=== PATIENT | female | born 1955 | race Caucasian/White ===

== ENCOUNTER 2020-11-30 10:15 | Outpatient (RCR) | payer MEDICARE, SELFPAY ==
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
--- NOTE | 2020-09-29 18:06 | HO.TMSDAILY2 ---
TMS Daily Progress Note Daily TMS Progress Note Week #: 1 Treatment #(12-31): 1 PHQ-9 Pre-Treatment (12-28): Pending PHQ-9 Most Recent (12-28): Pending CGI-I Most Recent: 4 = No Change Reviewed: TMS Tech Note Reviewed Verification: I have reviewed the TMS Veterinary Medicine Doctor Note and agree with the contents. The patient remains a candidate to continue TMS treatment per protocol.
--- NOTE | 2020-09-30 09:58 | HO.TMSDAILY2 ---
TMS Daily Progress Note Daily TMS Progress Note Week #: 1 Treatment #(12-31): 1 PHQ-9 Pre-Treatment (12-28): Pending actual score Predicted 16 PHQ-9 Most Recent (12-28): Pending CGI-I Most Recent: 4 = No Change Reviewed: TMS Tech Note Reviewed Verification: I have reviewed the TMS Work Station Support Specialist Note and agree with the contents. The patient remains a candidate to continue TMS treatment per protocol.
--- NOTE | 2020-09-30 18:46 | P.PNPS_ITS ---
TMS Daily Progress Note Daily TMS Progress Note Week #: 2 Treatment #(12-31): 1 PHQ-9 Pre-Treatment (12-28): 18 PHQ-9 Most Recent (12-28): 18 JAROD-7 Pre-Treatment (0-21): 13 JAROD-7 Most Recent (0-21): 13 CGI-I Most Recent: 4 = No Change Reviewed: TMS Tech Note Reviewed Verification: I have reviewed the TMS Dials Inspector Note and agree with the contents. The patient remains a candidate to continue TMS treatment per protocol.
--- NOTE | 2020-10-03 19:06 | P.PNPS_ITS ---
TMS Daily Progress Note Daily TMS Progress Note Week #: 3 Treatment #(12-31): 1 PHQ-9 Pre-Treatment (12-28): 18 PHQ-9 Most Recent (12-28): 18 JAROD-7 Pre-Treatment (0-21): 13 JAROD-7 Most Recent (0-21): 13 CGI-I Most Recent: 4 = No Change Reviewed: TMS Tech Note Reviewed Verification: I have reviewed the TMS Solar Sales Consultant Note and agree with the contents. The patient remains a candidate to continue TMS treatment per protocol.
--- NOTE | 2020-10-04 16:41 | P.PNPS_ITS ---
TMS Daily Progress Note Daily TMS Progress Note Week #: 1 Treatment #(12-31): 4 PHQ-9 Pre-Treatment (12-28): 18 PHQ-9 Most Recent (12-28): 18 JAROD-7 Pre-Treatment (0-21): 13 JAROD-7 Most Recent (0-21): 13 CGI-I Most Recent: 4 = No Change Reviewed: TMS Tech Note Reviewed Verification: I have reviewed the TMS Senior It Project Manager Note and agree with the contents. The patient remains a candidate to continue TMS treatment per protocol.
--- NOTE | 2020-10-05 09:26 | P.PNPS_ITS ---
TMS Daily Progress Note Daily TMS Progress Note Week #: 1 Treatment #(12-31): 5 PHQ-9 Pre-Treatment (12-28): 18 PHQ-9 Most Recent (12-28): 18 JAROD-7 Pre-Treatment (0-21): 13 JAROD-7 Most Recent (0-21): 13 CGI-I Most Recent: 4 = No Change Q-LES-Q-SF Most Recent: 36 Reviewed: TMS Tech Note Reviewed Verification: I have reviewed the TMS Cutting Machine Operator Note and agree with the contents. The patient remains a candidate to continue TMS treatment per protocol.
--- NOTE | 2020-10-06 15:33 | P.PNPS_ITS ---
TMS Daily Progress Note Daily TMS Progress Note Week #: 2 Treatment #(12-31): 6 PHQ-9 Pre-Treatment (12-28): 18 PHQ-9 Most Recent (12-28): 18 JAROD-7 Pre-Treatment (0-21): 13 JAROD-7 Most Recent (0-21): 13 CGI-I Most Recent: 4 = No Change Q-LES-Q-SF Most Recent: 36 Reviewed: TMS Tech Note Reviewed Verification: I have reviewed the TMS Furniture Finisher Apprentice Note and agree with the contents. The patient remains a candidate to continue TMS treatment per protocol.
--- NOTE | 2020-10-07 14:32 | P.PNPS_ITS ---
TMS Daily Progress Note Daily TMS Progress Note Treatment #(-30): 6 PHQ-9 Pre-Treatment (-): 18 PHQ-9 Most Recent (12-28): 18 JAROD-7 Pre-Treatment (0-21): 13 JAROD-7 Most Recent (0-21): 13 CGI-I Most Recent: 4 = No Change Q-LES-Q-SF Most Recent: 36 Verification: I have reviewed the TMS Appeals Analyst Note and agree with the contents. The patient remains a candidate to continue TMS treatment per protocol.
--- NOTE | 2020-10-07 14:32 | P.PNPS_ITS ---
TMS Daily Progress Note Daily TMS Progress Note Week #: 2 Treatment #(12-31): 7 PHQ-9 Pre-Treatment (12-28): 18 PHQ-9 Most Recent (12-28): 18 JAROD-7 Pre-Treatment (0-21): 13 JAROD-7 Most Recent (0-21): 13 CGI-I Most Recent: 4 = No Change Q-LES-Q-SF Most Recent: 36 Reviewed: TMS Tech Note Reviewed Verification: I have reviewed the TMS Head Sulfide Operator Note and agree with the contents. The patient remains a candidate to continue TMS treatment per protocol.
--- NOTE | 2020-10-10 14:18 | HO.TMSDAILY2 ---
TMS Daily Progress Note Daily TMS Progress Note Week #: 2 Treatment #(12-31): 8 PHQ-9 Pre-Treatment (12-28): 18 PHQ-9 Most Recent (12-28): 20 JAROD-7 Pre-Treatment (0-21): 13 JAROD-7 Most Recent (0-21): 12 CGI-I Most Recent: 5 = Minimally Worse Q-LES-Q-SF Most Recent: 36 Reviewed: TMS Tech Note Reviewed Verification: I have reviewed the TMS Bilingual Executive Assistant Note and agree with the contents. The patient remains a candidate to continue TMS treatment per protocol.
--- NOTE | 2020-10-11 21:56 | HO.TMSDAILY2 ---
TMS Daily Progress Note Daily TMS Progress Note Week #: 2 Treatment #(12-31): 9 PHQ-9 Pre-Treatment (12-28): 18 PHQ-9 Most Recent (12-28): 20 JAROD-7 Pre-Treatment (0-21): 13 JAROD-7 Most Recent (0-21): 12 CGI-I Most Recent: 5 = Minimally Worse Q-LES-Q-SF Most Recent: 36 Reviewed: TMS Tech Note Reviewed Verification: I have reviewed the TMS Insights Manager Note and agree with the contents. The patient remains a candidate to continue TMS treatment per protocol.
--- NOTE | 2020-10-12 19:24 | P.PNPS_ITS ---
TMS Daily Progress Note Daily TMS Progress Note Week #: 2 Treatment #(12-31): 10 PHQ-9 Pre-Treatment (12-28): 18 PHQ-9 Most Recent (12-28): 20 JAROD-7 Pre-Treatment (0-21): 13 JAROD-7 Most Recent (0-21): 12 CGI-I Most Recent: 5 = Minimally Worse Q-LES-Q-SF Most Recent: 36 Reviewed: TMS Tech Note Reviewed Verification: I have reviewed the TMS Asset Protection Assistant Note and agree with the contents. The patient remains a candidate to continue TMS treatment per protocol.
--- NOTE | 2020-10-13 12:16 | HO.TMSDAILY2 ---
TMS Daily Progress Note Daily TMS Progress Note Week #: 3 Treatment #(12-31): 11 PHQ-9 Pre-Treatment (12-28): 18 PHQ-9 Most Recent (12-28): 20 JAROD-7 Pre-Treatment (0-21): 13 JAROD-7 Most Recent (0-21): 12 CGI-I Most Recent: 5 = Minimally Worse Q-LES-Q-SF Most Recent: 36 Reviewed: TMS Tech Note Reviewed Verification: I have reviewed the TMS Director Student Union Note and agree with the contents. The patient remains a candidate to continue TMS treatment per protocol.
--- NOTE | 2020-10-14 23:03 | P.PNPS_ITS ---
TMS Daily Progress Note Daily TMS Progress Note Week #: 3 Treatment #(12-31): 12 PHQ-9 Pre-Treatment (12-28): 18 PHQ-9 Most Recent (12-28): 20 JAROD-7 Pre-Treatment (0-21): 13 JAROD-7 Most Recent (0-21): 12 CGI-I Most Recent: 5 = Minimally Worse Q-LES-Q-SF Most Recent: 36 Reviewed: TMS Tech Note Reviewed Verification: I have reviewed the TMS Regional Facilities Manager Note and agree with the contents. The patient remains a candidate to continue TMS treatment per protocol.
--- NOTE | 2020-10-17 19:27 | P.PNPS_ITS ---
TMS Daily Progress Note Daily TMS Progress Note Week #: 3 Treatment #(12-31): 13 PHQ-9 Pre-Treatment (12-28): 18 PHQ-9 Most Recent (12-28): 15 JAROD-7 Pre-Treatment (0-21): 13 JAROD-7 Most Recent (0-21): 11 CGI-I Most Recent: 3 = Minimally Improved Q-LES-Q-SF Most Recent: 36 Reviewed: TMS Tech Note Reviewed Verification: I have reviewed the TMS Clerk Manager Note and agree with the contents. The patient remains a candidate to continue TMS treatment per protocol.
--- NOTE | 2020-10-18 23:59 | HO.TMSDAILY2 ---
TMS Daily Progress Note Daily TMS Progress Note Week #: 3 Treatment #(12-31): 14 PHQ-9 Pre-Treatment (12-28): 18 PHQ-9 Most Recent (12-28): 15 JAROD-7 Pre-Treatment (0-21): 13 JAROD-7 Most Recent (0-21): 11 CGI-I Most Recent: 3 = Minimally Improved Q-LES-Q-SF Most Recent: 36 Reviewed: TMS Tech Note Reviewed Verification: I have reviewed the TMS Gravity Prospecting Observer Helper Note and agree with the contents. The patient remains a candidate to continue TMS treatment per protocol.
--- NOTE | 2020-10-19 18:16 | P.PNPS_ITS ---
TMS Daily Progress Note Daily TMS Progress Note Week #: 3 Treatment #(12-31): 15 PHQ-9 Pre-Treatment (12-28): 18 PHQ-9 Most Recent (12-28): 15 JAROD-7 Pre-Treatment (0-21): 13 JAROD-7 Most Recent (0-21): 11 CGI-I Most Recent: 3 = Minimally Improved Q-LES-Q-SF Most Recent: 36 Reviewed: TMS Tech Note Reviewed (Uncomplicated re-mapping. Settings slightly different but not substantially so. Reminded Cami that she is early in treatment, and is likely to have a good response as she has had in the past) Verification: I have reviewed the TMS Railroad Car Repair Supervisor Note and agree with the contents. The patient remains a candidate to continue TMS treatment per protocol.
--- NOTE | 2020-10-20 04:20 | HO.TMSDAILY2 ---
TMS Daily Progress Note Daily TMS Progress Note Week #: 4 Treatment #(12-31): 16 PHQ-9 Pre-Treatment (12-28): 18 PHQ-9 Most Recent (12-28): 15 JAROD-7 Pre-Treatment (0-21): 13 JAROD-7 Most Recent (0-21): 11 CGI-I Most Recent: 3 = Minimally Improved Q-LES-Q-SF Most Recent: 36 Reviewed: TMS Tech Note Reviewed Verification: I have reviewed the TMS Manager Medical Affairs Note and agree with the contents. The patient remains a candidate to continue TMS treatment per protocol.
--- NOTE | 2020-10-21 13:57 | P.PNPS_ITS ---
TMS Daily Progress Note Daily TMS Progress Note Week #: 4 Treatment #(12-31): 17 PHQ-9 Pre-Treatment (12-28): 18 PHQ-9 Most Recent (12-28): 15 JAROD-7 Pre-Treatment (0-21): 13 JAROD-7 Most Recent (0-21): 16 CGI-I Most Recent: 4 = No Change Q-LES-Q-SF Most Recent: 36 Reviewed: TMS Tech Note Reviewed (TMS tech will confirm with patient at next appointment that maximum dose of tylenol at one dose should be 1000mg) Verification: I have reviewed the TMS Interior Horticulturist Note and agree with the contents. The patient remains a candidate to continue TMS treatment per protocol.
--- NOTE | 2020-10-24 15:46 | HO.TMSDAILY2 ---
TMS Daily Progress Note Daily TMS Progress Note Week #: 4 Treatment #(12-31): 18 PHQ-9 Pre-Treatment (12-28): 18 PHQ-9 Most Recent (12-28): 15 JAROD-7 Pre-Treatment (0-21): 13 JAROD-7 Most Recent (0-21): 10 CGI-I Most Recent: 4 = No Change Q-LES-Q-SF Most Recent: 55 Reviewed: TMS Tech Note Reviewed Verification: I have reviewed the TMS Brick Chimney Supervisor Note and agree with the contents. The patient remains a candidate to continue TMS treatment per protocol.
--- NOTE | 2020-10-25 23:13 | HO.TMSDAILY2 ---
TMS Daily Progress Note Daily TMS Progress Note Date of Service: 10/25/20 Week #: 4 Treatment #(-): 19 PHQ-9 Pre-Treatment (1-): 18 PHQ-9 Most Recent (12-28): 15 JAROD-7 Pre-Treatment (0-21): 13 JAROD-7 Most Recent (0-21): 10 CGI-I Most Recent: 4 = No Change Q-LES-Q-SF Most Recent: 55 Reviewed: TMS Tech Note Reviewed Verification: I have reviewed the TMS Pinner Printed Circuit Boards Note and agree with the contents. The patient remains a candidate to continue TMS treatment per protocol.
--- NOTE | 2020-10-26 05:44 | HO.TMSDAILY2 ---
TMS Daily Progress Note Daily TMS Progress Note Date of Service: 10/27/20 Week #: 4 Treatment #(-): 20 PHQ-9 Pre-Treatment (-): 18 PHQ-9 Most Recent (12-28): 15 JAROD-7 Pre-Treatment (0-21): 13 JAROD-7 Most Recent (0-21): 10 CGI-I Most Recent: 4 = No Change Q-LES-Q-SF Most Recent: 55 Reviewed: TMS Tech Note Reviewed Verification: I have reviewed the TMS Veterinary Surgery Technologist Note and agree with the contents. The patient remains a candidate to continue TMS treatment per protocol.
--- NOTE | 2020-10-31 17:26 | HO.TMSDAILY2 ---
TMS Daily Progress Note Daily TMS Progress Note Date of Service: 10/31/20 Week #: 5 Treatment #(-): 21 PHQ-9 Pre-Treatment (-): 18 PHQ-9 Most Recent (12-28): 14 JAROD-7 Pre-Treatment (0-21): 13 JAROD-7 Most Recent (0-21): 12 CGI-I Most Recent: 4 = No Change Q-LES-Q-SF Most Recent: 55 Reviewed: TMS Tech Note Reviewed Verification: I have reviewed the TMS Programming Coordinator Note and agree with the contents. The patient remains a candidate to continue TMS treatment per protocol.
--- NOTE | 2020-11-01 23:19 | P.PNPS_ITS ---
TMS Daily Progress Note Daily TMS Progress Note Date of Service: 11/01/20 Week #: 5 Treatment #(-): 22 PHQ-9 Pre-Treatment (-): 18 PHQ-9 Most Recent (12-28): 14 JAROD-7 Pre-Treatment (0-21): 13 JAROD-7 Most Recent (0-21): 12 CGI-I Most Recent: 4 = No Change Q-LES-Q-SF Most Recent: 55 Reviewed: TMS Tech Note Reviewed Verification: I have reviewed the TMS Oracle Software Engineer Note and agree with the contents. The patient remains a candidate to continue TMS treatment per protocol.
--- NOTE | 2020-11-02 08:11 | P.PNPS_ITS ---
TMS Daily Progress Note Daily TMS Progress Note Date of Service: 11/02/20 Week #: 5 Treatment #(-30): 23 PHQ-9 Pre-Treatment (1-): 18 PHQ-9 Most Recent (12-28): 14 JAROD-7 Pre-Treatment (0-21): 13 JAROD-7 Most Recent (0-21): 12 CGI-I Most Recent: 3 = Minimally Improved Q-LES-Q-SF Most Recent: 55 Reviewed: TMS Tech Note Reviewed Verification: I have reviewed the TMS Tobacco Acreage Measurer Note and agree with the eugenio nts. The patient remains a candidate to continue TMS treatment per protocol.
--- NOTE | 2020-11-03 16:48 | P.PNPS_ITS ---
TMS Daily Progress Note Daily TMS Progress Note Date of Service: 11/03/20 Week #: 5 Treatment #(-30): 24 PHQ-9 Pre-Treatment (1-): 18 PHQ-9 Most Recent (12-28): 14 JAROD-7 Pre-Treatment (0-21): 13 JAROD-7 Most Recent (0-21): 12 CGI-I Most Recent: 3 = Minimally Improved Q-LES-Q-SF Most Recent: 55 Reviewed: TMS Tech Note Reviewed Verification: I have reviewed the TMS Moving Van Driver Note and agree with the eugenio nts. The patient remains a candidate to continue TMS treatment per protocol.
--- NOTE | 2020-11-04 12:54 | HO.TMSDAILY2 ---
TMS Daily Progress Note Daily TMS Progress Note Date of Service: 11/04/20 Week #: 5 Treatment #(-30): 25 PHQ-9 Pre-Treatment (1-): 18 PHQ-9 Most Recent (-): 14 JAROD-7 Pre-Treatment (0-21): 13 JAROD-7 Most Recent (0-21): 12 CGI-I Most Recent: 3 = Minimally Improved Q-LES-Q-SF Most Recent: 55 Reviewed: TMS Tech Note Reviewed Verification: I have reviewed the TMS Chemical Research Worker Note and agree with the contents. The patient remains a candidate to continue TMS treatment per protocol.
--- NOTE | 2020-11-07 19:01 | P.PNPS_ITS ---
TMS Daily Progress Note Daily TMS Progress Note Date of Service: 11/07/20 Week #: 5 Treatment #(-30): 26 PHQ-9 Pre-Treatment (1-): 18 PHQ-9 Most Recent (-): 14 JAROD-7 Pre-Treatment (0-21): 13 JAROD-7 Most Recent (0-21): 12 CGI-I Most Recent: 3 = Minimally Improved Q-LES-Q-SF Most Recent: 55 Reviewed: TMS Tech Note Reviewed Verification: I have reviewed the TMS Metal Temperer Note and agree with the eugenio nts. The patient remains a candidate to continue TMS treatment per protocol.
--- NOTE | 2020-11-08 20:39 | P.PNPS_ITS ---
TMS Daily Progress Note Daily TMS Progress Note Date of Service: 11/08/20 Week #: 6 Treatment #(-30): 27 PHQ-9 Pre-Treatment (1-): 18 PHQ-9 Most Recent (12-28): 10 JAROD-7 Pre-Treatment (0-21): 13 JAROD-7 Most Recent (0-21): 10 CGI-I Most Recent: 3 = Minimally Improved Q-LES-Q-SF Most Recent: 55 Reviewed: TMS Tech Note Reviewed Verification: I have reviewed the TMS Strategic Planning Specialist Note and agree with the eugenio nts. The patient remains a candidate to continue TMS treatment per protocol.
--- NOTE | 2020-11-09 20:52 | HO.TMSDAILY2 ---
TMS Daily Progress Note Daily TMS Progress Note Date of Service: 11/09/20 Week #: 6 Treatment #(-30): 27 PHQ-9 Pre-Treatment (1-): 18 PHQ-9 Most Recent (12-28): 10 JAROD-7 Pre-Treatment (0-21): 13 JAROD-7 Most Recent (0-21): 10 CGI-I Most Recent: 3 = Minimally Improved Q-LES-Q-SF Most Recent: 55 Reviewed: TMS Tech Note Reviewed Verification: I have reviewed the TMS Ecological Technical Officer Note and agree with the contents. The patient remains a candidate to continue TMS treatment per protocol.
--- NOTE | 2020-11-11 10:34 | HO.TMSDAILY2 ---
TMS Daily Progress Note Daily TMS Progress Note Date of Service: 11/11/20 Week #: 6 Treatment #(-30): 29 PHQ-9 Pre-Treatment (1-): 18 PHQ-9 Most Recent (12-28): 10 JAROD-7 Pre-Treatment (0-21): 13 JAROD-7 Most Recent (0-21): 10 CGI-I Most Recent: 3 = Minimally Improved Q-LES-Q-SF Most Recent: 55 Reviewed: TMS Tech Note Reviewed (Late entry for 11/10/20) Verification: I have reviewed the TMS Inspector Toys Note and agree with the contents. The patient remains a candidate to continue TMS treatment per protocol.
--- NOTE | 2020-11-11 15:59 | P.PNPS_ITS ---
TMS Daily Progress Note Daily TMS Progress Note Date of Service: 11/11/20 Week #: 6 Treatment #(-30): 30 PHQ-9 Pre-Treatment (1-): 18 PHQ-9 Most Recent (12-28): 10 JAROD-7 Pre-Treatment (0-21): 13 JAROD-7 Most Recent (0-21): 10 CGI-I Most Recent: 3 = Minimally Improved Q-LES-Q-SF Most Recent: 55 Reviewed: TMS Tech Note Reviewed Verification: I have reviewed the TMS Dog License Officer Supervisor Note and agree with the eugenio nts. The patient remains a candidate to continue TMS treatment per protocol.
--- NOTE | 2020-11-14 15:17 | P.PNPS_ITS ---
TMS Daily Progress Note Daily TMS Progress Note Date of Service: 11/14/20 Week #: 7 Treatment #(-30): 31 PHQ-9 Pre-Treatment (-): 18 PHQ-9 Most Recent (12-28): 7 JAROD-7 Pre-Treatment (0-21): 13 JAROD-7 Most Recent (0-21): 8 CGI-I Most Recent: 3 = Minimally Improved Q-LES-Q-SF Most Recent: 55 Reviewed: TMS Tech Note Reviewed Verification: I have reviewed the TMS Pilot Teacher Note and agree with the content s. The patient remains a candidate to continue TMS treatment per protocol.
--- NOTE | 2020-11-16 15:39 | HO.TMSDAILY2 ---
TMS Daily Progress Note Daily TMS Progress Note Date of Service: 11/16/20 Week #: 7 Treatment #(-30): 32 PHQ-9 Pre-Treatment (1-): 18 PHQ-9 Most Recent (12-28): 7 JAROD-7 Pre-Treatment (0-21): 13 JAROD-7 Most Recent (0-21): 8 CGI-I Most Recent: 3 = Minimally Improved Q-LES-Q-SF Most Recent: 55 Reviewed: TMS Tech Note Reviewed Verification: I have reviewed the TMS Legal Document Specialist Note and agree with the contents. The patient remains a candidate to continue TMS treatment per protocol.
--- NOTE | 2020-11-21 17:49 | HO.TMSDAILY2 ---
TMS Daily Progress Note Daily TMS Progress Note Date of Service: 11/22/20 Week #: 8 Treatment #(-): 33 PHQ-9 Pre-Treatment (1-): 18 PHQ-9 Most Recent (12-28): 7 JAROD-7 Pre-Treatment (0-21): 13 JAROD-7 Most Recent (0-21): 8 CGI-I Most Recent: 3 = Minimally Improved Q-LES-Q-SF Most Recent: 55 Reviewed: TMS Tech Note Reviewed Verification: I have reviewed the TMS Blanking Press Operator Note and agree with the contents. The patient remains a candidate to continue TMS treatment per protocol.
--- NOTE | 2020-11-22 22:51 | P.PNPS_ITS ---
TMS Daily Progress Note Daily TMS Progress Note Date of Service: 11/22/20 Week #: 8 Treatment #(-): 34 PHQ-9 Pre-Treatment (-): 18 PHQ-9 Most Recent (12-28): 7 JAROD-7 Pre-Treatment (0-21): 13 JAROD-7 Most Recent (0-21): 8 CGI-I Most Recent: 3 = Minimally Improved Q-LES-Q-SF Most Recent: 55 Reviewed: TMS Tech Note Reviewed Verification: I have reviewed the TMS Honing Machine Set Up Operator Note and agree with the content s. The patient remains a candidate to continue TMS treatment per protocol.
--- NOTE | 2020-11-30 23:09 | HO.TMSDAILY2 ---
TMS Daily Progress Note Daily TMS Progress Note Date of Service: 12/01/20 Week #: 6 Treatment #(-): 36 PHQ-9 Pre-Treatment (1-): 18 PHQ-9 Most Recent (12-28): 7 JAROD-7 Pre-Treatment (0-21): 13 JAROD-7 Most Recent (0-21): 8 CGI-I Most Recent: 3 = Minimally Improved Q-LES-Q-SF Most Recent: 55 Reviewed: TMS Tech Note Reviewed Verification: I have reviewed the TMS Stock Sheets Cleaner Inspector Note and agree with the contents. The patient remains a candidate to continue TMS treatment per protocol.
== END 2020-11-30 15:00 | disposition home or self-care (01) ==
LOC: HO.PTMS 10:15
PROVIDERS: PCP Family Medicine; Visit Provider Psychiatry & Neurology Psychiatry
DX: F33.2 Major depressive disorder, recurrent severe without psychotic features (principal); F43.10 Post-traumatic stress disorder, unspecified
CPT/HCPCS: 90868; 90869